=== PATIENT | male | born 1970 | race Caucasian/White ===

== ENCOUNTER 2017-08-26 13:35 | Emergency (ER) | payer BC, OTHER ==
[~2017-08-26] VITALS: Ht 190.5 cm; Wt 90.0 kg
[2017-08-26 13:42] VITALS: BP 156/103; PULSE 101; RESP 18; TEMP 98.6; O2SAT 95
[2017-08-26 13:47] VITALS: BP 143/103; PULSE 103; RESP 18; TEMP 98.9; O2SAT 98
[2017-08-26 14:08] VITALS: O2SAT 99
[2017-08-26 14:15] LABS: AUTOMATED NEUTROPHIL # 3.2 TH/MM3 (1.8-7.7); BASOPHIL % 0.9 % (0.0-2.0); EOSINOPHIL # 0.1 TH/MM3 (0-0.4); EOSINOPHIL % 2.2 % (0.0-4.0); HEMATOCRIT 38.2 % (39.0-51.0); HEMOGLOBIN 12.8 GM/DL (13.0-17.0); LYMPH % 21.7 % (9.0-44.0); LYMPHOCYTE # 1.2 TH/MM3 (1.0-4.8); MEAN CELL VOLUME 105.1 FL (80.0-100.0); MEAN CORPUSCULAR HEMOGLOBIN 35.1 PG (27.0-34.0); MEAN CORPUSCULAR HGB CONC 33.4 % (32.0-36.0); MEAN PLATELET VOLUME 7.9 FL (7.0-11.0); MONO % 14.6 % (0.0-8.0); MONOCYTE # 0.8 TH/MM3 (0-0.9); NEUT % 60.6 % (16.0-70.0); PLATELET COUNT 143 TH/MM3 (150-450); RED BLOOD COUNT 3.64 MIL/MM3 (4.50-5.90); RED CELL DISTRIBUTION WIDTH 14.5 % (11.6-17.2); WHITE BLOOD COUNT 5.3 TH/MM3 (4.0-11.0)
--- NOTE | 2017-08-26 14:24 | PD ---
HPI Chief Complaint: Seizure Time Seen by Provider: 13:46 Travel History International Travel<30 days: No Contact w/Intl Traveler<30days: No Traveled to known affect area: No History of Present Illness HPI 47-year-old male patient presents emergency department via EMS for evaluation after having seizure-like activity at a local gas station. Patient denies any previous seizures. Patient states last thing he remembers is walking into the gas station. Per EMS the patient was sitting down at a table about to eat some food when he started having what looked to be a clonic tonic seizure. Bystanders assisted the patient so he did not fall. No incontinence of urine or stool occurred. Postictal phase noted. Patient woke up in route to the emergency department in the ambulance and did not know what was going on. Patient denies any current alcohol use. Patient states he used to abuse alcohol. Patient states his last drink was 8 years ago. What seems to be the smell of alcohol is noted on the patient's breath by the nursing staff. Patient states he is going through early stressful time. He was laid off of his job earlier this week. Patient appears unkempt and disheveled. Patient denies any recent infections, fevers, chills, malaise, chest pain or shortness breath, headache, nausea, vomiting, diarrhea, dysuria. PFSH Past Medical History ?: Not Social History Alcohol Use: No Tobacco Use: Yes Substance Use: No Allergies-Medications (Allergen,Severity, Reaction): Coded Allergies: No Known Allergies (Unverified , 08/26/17) Review of Systems Except as stated in HPI: all other systems reviewed are Neg Physical Exam Narrative GENERAL: Well-nourished, disheveled, unkempt 47-year-old male patient in no acute distress. Nontoxic appearing. SKIN: Focused skin assessment warm/dry. HEAD: Atraumatic. Normocephalic. EYES: Pupils equal and round. No scleral icterus. Mild bilateral injection noted. No drainage. ENT: No nasal bleeding or discharge. Mucous membranes pink and moist. NECK: Trachea midline. No JVD. CARDIOVASCULAR: Regular rate and rhythm. No murmur appreciated. RESPIRATORY: No accessory muscle use. Clear to auscultation. Breath sounds equal bilaterally. GASTROINTESTINAL: Abdomen soft, non-tender, nondistended. Hepatic and splenic margins not palpable. MUSCULOSKELETAL: No obvious deformities. No clubbing. No cyanosis. No edema. NEUROLOGICAL: Awake and alert. No obvious cranial nerve deficits. Motor grossly within normal limits. Normal speech. PSYCHIATRIC: Appropriate mood and affect; insight and judgment normal. Data Data Last Documented VS Vital Signs Date Time Temp Pulse Resp B/P (MAP) Pulse Ox O2 Delivery O2 Flow Rate FiO2 08/26/17 16:54 08/26/17 14:43 82 18 99 Room Air 08/26/17 13:47 98.9 Orders Orders Complete Blood Count With Diff (08/26/17 13:56) Alcohol (Ethanol) (08/26/17 13:56) Drug Screen, Random Urine (08/26/17 13:56) Electrocardiogram (08/26/17 ) Ct Brain W/O Iv Contrast(Rout) (08/26/17 ) Blood Glucose (08/26/17 13:56) Ecg Monitoring (08/26/17 13:56) Iv Access Insert/Monitor (08/26/17 13:56) Oximetry (08/26/17 13:56) Comprehensive Metabolic Panel (08/26/17 13:56) Urinalysis - C+S If Indicated (08/26/17 13:56) Labs Laboratory Tests Test 08/26/17 13:30 08/26/17 14:05 Urine Color YELLOW Urine Turbidity CLEAR Urine pH 6.5 Urine Specific [place] 1.017 Urine Protein 30 mg/dL Urine Glucose (UA) NEG mg/dL Urine Ketones NEG mg/dL Urine Occult Blood NEG Urine Nitrite NEG Urine Bilirubin NEG Urine Urobilinogen 2.0 MG/DL Urine Leukocyte Esterase NEG Urine Squamous Epithelial Cells <1 /hpf Urine Hyaline Casts 12 /lpf Urine Granular Casts 4 /lpf Urine Mucus FEW /lpf Microscopic Urinalysis Comment CULT NOT INDICATED Urine Opiates Screen POS Urine Barbiturates Screen NEG Urine Amphetamines Screen NEG Urine Benzodiazepines Screen NEG Urine Cocaine Screen NEG Urine Cannabinoids Screen POS White Blood Count 5.3 TH/MM3 Red Blood Count 3.64 MIL/MM3 Hemoglobin 12.8 GM/DL Hematocrit 38.2 % Mean Corpuscular Volume 105.1 FL Mean Corpuscular Hemoglobin 35.1 PG Mean Corpuscular Hemoglobin Concent 33.4 % Red Cell Distribution Width 14.5 % Platelet Count 143 TH/MM3 Mean Platelet Volume 7.9 FL Neutrophils (%) (Auto) 60.6 % Lymphocytes (%) (Auto) 21.7 % Monocytes (%) (Auto) 14.6 % Eosinophils (%) (Auto) 2.2 % Basophils (%) (Auto) 0.9 % Neutrophils # (Auto) 3.2 TH/MM3 Lymphocytes # (Auto) 1.2 TH/MM3 Monocytes # (Auto) 0.8 TH/MM3 Eosinophils # (Auto) 0.1 TH/MM3 Basophils # (Auto) 0.0 TH/MM3 CBC Comment DIFF FINAL Differential Comment Blood Urea Nitrogen 6 MG/DL Creatinine 1.01 MG/DL Random Glucose 92 MG/DL Total Protein 7.3 GM/DL Albumin 3.7 GM/DL Calcium Level 9.1 MG/DL Alkaline Phosphatase 97 U/L Aspartate Amino Transf (AST/SGOT) 158 U/L Alanine Aminotransferase (ALT/SGPT) 120 U/L Total Bilirubin 1.0 MG/DL Sodium Level 137 MEQ/L Potassium Level 3.7 MEQ/L Chloride Level 101 MEQ/L Carbon Dioxide Level 22.4 MEQ/L Anion Gap 14 MEQ/L Estimat Glomerular Filtration Rate 79 ML/MIN Ethyl Alcohol Level LESS THAN 3 MG/DL MDM Medical Decision Making Medical Screen Exam Complete: Yes Emergency Medical Condition: Yes Differential Diagnosis Differential diagnoses include but are not limited to electrolyte abnormality, seizure-like activity, new onset seizures, alcohol abuse, drug abuse Narrative Course Patient place a monitor, IV obtained and blood works in the lab. CBC, CMP, alcohol level, UA and drug screen ordered. EKG ordered and interpreted. EKG shows sinus rhythm with heart rate 90. Brain CT ordered and pending. CT of the brain resulted scattered white matter hypodensities indicating chronic ischemic changes versus demyelinating disorder. Small air fluid level in the right maxillary sinus suggesting acute sinusitis. CBC shows no acute abnormalities. CMP shows elevated liver enzymes. Patient encouraged to follow up with primary care regarding these findings. Patient states his primary care is located in [place]. UA shows no acute abnormalities. Drug screen is positive for cannabis and opiates. Patient states he takes hydrocodone as prescribed for shoulder pain. Patient case discussed with my attending Dr. Elaine. Patient had no seizure-like activity during his emergency department stay. Patient's vital signs are within normal limits. Patient instructed to follow up with neurology regarding CT findings and seizure-like activity. Patient told not to drive or operate heavy machinery until cleared by neurology. Patient understands and states she will follow up with primary care regarding elevated liver enzymes and follow with neurology regarding CT findings and new onset seizure-like activity. Patient is discharged home at this time with instructions to return to the emergency department with any worsening condition. Last Impressions Head CT 08/26/17 0000 Signed Impressions: Service Date/Time: Monday, August 26, 2017 14:58 - CONCLUSION: 1. Scattered white matter hypodensities indicating chronic ischemic change versus demyelinating disorder. 2. Small air-fluid level in the right maxillary sinus suggesting acute sinusitis. Eros Mckeon MD Laboratory Tests Test 08/26/17 13:30 08/26/17 14:05 Urine Color YELLOW Urine Turbidity CLEAR Urine pH 6.5 Urine Specific [place] 1.017 Urine Protein 30 mg/dL Urine Glucose (UA) NEG mg/dL Urine Ketones NEG mg/dL Urine Occult Blood NEG Urine Nitrite NEG Urine Bilirubin NEG Urine Urobilinogen 2.0 MG/DL Urine Leukocyte Esterase NEG Urine Squamous Epithelial Cells <1 /hpf Urine Hyaline Casts 12 /lpf Urine Granular Casts 4 /lpf Urine Mucus FEW /lpf Microscopic Urinalysis Comment CULT NOT INDICATED Urine Opiates Screen POS Urine Barbiturates Screen NEG Urine Amphetamines Screen NEG Urine Benzodiazepines Screen NEG Urine Cocaine Screen NEG Urine Cannabinoids Screen POS White Blood Count 5.3 TH/MM3 Red Blood Count 3.64 MIL/MM3 Hemoglobin 12.8 GM/DL Hematocrit 38.2 % Mean Corpuscular Volume 105.1 FL Mean Corpuscular Hemoglobin 35.1 PG Mean Corpuscular Hemoglobin Concent 33.4 % Red Cell Distribution Width 14.5 % Platelet Count 143 TH/MM3 Mean Platelet Volume 7.9 FL Neutrophils (%) (Auto) 60.6 % Lymphocytes (%) (Auto) 21.7 % Monocytes (%) (Auto) 14.6 % Eosinophils (%) (Auto) 2.2 % Basophils (%) (Auto) 0.9 % Neutrophils # (Auto) 3.2 TH/MM3 Lymphocytes # (Auto) 1.2 TH/MM3 Monocytes # (Auto) 0.8 TH/MM3 Eosinophils # (Auto) 0.1 TH/MM3 Basophils # (Auto) 0.0 TH/MM3 CBC Comment DIFF FINAL Differential Comment Blood Urea Nitrogen 6 MG/DL Creatinine 1.01 MG/DL Random Glucose 92 MG/DL Total Protein 7.3 GM/DL Albumin 3.7 GM/DL Calcium Level 9.1 MG/DL Alkaline Phosphatase 97 U/L Aspartate Amino Transf (AST/SGOT) 158 U/L Alanine Aminotransferase (ALT/SGPT) 120 U/L Total Bilirubin 1.0 MG/DL Sodium Level 137 MEQ/L Potassium Level 3.7 MEQ/L Chloride Level 101 MEQ/L Carbon Dioxide Level 22.4 MEQ/L Anion Gap 14 MEQ/L Estimat Glomerular Filtration Rate 79 ML/MIN Ethyl Alcohol Level LESS THAN 3 MG/DL Diagnosis Primary Impression: Seizure-like activity Referrals: Tico Wheat MD Additional Instructions: Please return to emergency department if your symptoms return or worsen. Follow up with neurologist, Dr. Wheat. I provided his contact information. No driving or operating heavy machinery until follow-up with neurology and cleared. Follow-up with primary care physician as needed. Disposition: 01 DISCHARGE HOME Condition: Stable ChanelleMariiadayana JACOBSEN Aug 26, 2017 14:24
[2017-08-26 14:33] LABS: ALBUMIN 3.7 GM/DL (3.4-5.0); ALT (GPT) 120 U/L (12-78); AST (GOT) 158 U/L (15-37); BICARBONATE 22.4 MEQ/L (21.0-32.0); BLOOD UREA NITROGEN 6 MG/DL (7-18); CALCIUM 9.1 MG/DL (8.5-10.1); CHLORIDE 101 MEQ/L (98-107); CREATININE 1.01 MG/DL (0.60-1.30); GLOMERULAR FILTRATION RATE 79 ML/MIN (>89); GLUCOSE,RANDOM 92 MG/DL (74-106); SODIUM (NA) 137 MEQ/L (136-145)
[2017-08-26 14:35] LABS: ALKALINE PHOSPHATASE 97 U/L (45-117); TOTAL PROTEIN 7.3 GM/DL (6.4-8.2)
[2017-08-26 14:43] VITALS: BP 137/96; PULSE 82; RESP 18; O2SAT 99
--- NOTE | 2017-08-26 15:23 | RADRPT ---
EXAM DATE/TIME: 08/26/2017 14:58 [facility] COMPARISON: No previous studies available for comparison. INDICATIONS : Possible seizure today. RADIATION DOSE: 32.61 CTDIvol (mGy) MEDICAL HISTORY : None SURGICAL HISTORY : None. ENCOUNTER: Initial ACUITY: 1 day PAIN SCALE: 0/10 LOCATION: Bilateral head TECHNIQUE: Multiple contiguous axial images were obtained of the head. Using automated exposure control and adj ustment of the mA and/or kV according to patient size, radiation dose was kept as low as reasonably a chievable to obtain optimal diagnostic quality images. DICOM format image data is available electro nically for review and comparison. FINDINGS: CEREBRUM: The ventricles are normal for age. No evidence of midline shift, mass lesion, hemorrhage or acute in farction. No extra-axial fluid collections are seen. Scattered periventricular and subcortical white matter hypodensities are prominent for age indicating chronic small vessel ischemic change or demyel inating disorder. POSTERIOR FOSSA: The cerebellum and brainstem are intact. The 4th ventricle is midline. The cerebellopontine angle i s unremarkable. EXTRACRANIAL: Small air-fluid level in the right maxillary sinus and mild mucosal thickening of the ethmoid sinuses . SKULL: The calvaria is intact. No evidence of skull fracture. CONCLUSION: 1. Scattered white matter hypodensities indicating chronic ischemic change versus demyelinating disor estela. 2. Small air-fluid level in the right maxillary sinus suggesting acute sinusitis. Eros Mckeon MD on August 26, 2017 at 15:19 Board Certified Radiologist. This report was verified electronically.
[2017-08-26 15:43] LABS: BILIRUBIN, URINE NEG (NEG); BLOOD, URINE NEG (NEG); GLUCOSE,URINE NEG (NEG); HYALINE CAST, URINE 12 /lpf (RARE); KETONE, URINE NEG (NEG); MUCUS URINE FEW /lpf (OCC); NITRITE,URINE NEG (NEG); PH, URINE 6.5 (5.0-8.5); SQUAMOUS EPITHELIAL CELL URINE <1 /hpf (0-5); URINE COLOR YELLOW (YELLW/STRAW); URINE LEUKOCYTE ESTERASE NEG (NEG)
--- NOTE | 2017-08-26 16:36 | EKG ---
Date Performed: 08/26/2017 Time Performed: 14:34:56 PTAGE: 47 years EKG: Sinus rhythm POSSIBLE RIGHT VENTRICULAR CONDUCTION DELAY BORDERLINE ECG NO PREVIOUS TRACING DOCTOR: Joao León Interpretating Date/Time 08/26/2017 16:35:05
== END 2017-08-26 17:00 | disposition home or self-care (01) ==
LOC: NEPC 13:35
DX: R56.9 Unspecified convulsions (principal); Z72.0 Tobacco use
CPT/HCPCS: 70450; 80053; 80307; 81001; 85025; 93005; 99285